=== PATIENT | female | born 1960 | race Hispanic/Latino ===

== ENCOUNTER 2017-08-26 10:45 | Outpatient (CLI) | payer OTHER ==
--- NOTE | 2017-08-26 13:33 | Mammography Report ---
Bilateral mammogram: No previous studies available. C. M.D. study utilized. Findings: Predominance adipose tissue bilaterally. 2 mm focal circumscribed asymmetry noted at mid left breast a long line of nipple seen on CC view. Normal axilla. No microcalcification. Impression: Tiny focal asymmetry is noted left breast. Recommend spot mag and if necessary sonographic examination. BI-RADS CATEGORY: 0 = Needs additional imaging evaluation ACR BI-RADS MAMMOGRAPHIC CODES: 0 = Needs additional imaging evaluation; 1 = Negative; 2 = Benign; 3 = Probably benign; 4 = Suspicious; 5 = Malignant; 6 = Known biopsy-proven malignancy COMMENT: 1. Dense breast tissue, i.e., adenosis, fibrocystic changes, etc., may obscure an underlying neoplasm. 2. Approximately 10% of cancers are not detected with mammography. 3. A negative mammography report should not delay biopsy if a clinically suspicious mass is present. COMMENT: Patient follow-up letters are generated in [employer].
== END 2017-08-26 10:46 | disposition home or self-care (01) ==
LOC: SPVWC 10:45
PROVIDERS: ATTEND Advanced Practice Midwife
DX: Z12.31 Encounter for screening mammogram for malignant neoplasm of breast (principal)
CPT/HCPCS: 77067

== ENCOUNTER 2017-09-09 10:02 | Outpatient (CLI) | payer OTHER ==
--- NOTE | 2017-09-09 10:35 | Mammography Report ---
left DIGITAL DIAGNOSTIC MAMMOGRAM : 09/09/17 10:02:00 CLINICAL: Recalled for asymmetry. COMPARISON:08/26/17 screening FINDINGS: A spot magnification CC view was performed and is negative. IMPRESSION: Negative Mammogram. BI-RADS CATEGORY: 1 -- Negative RECOMMENDATION: Routine mammographic screening in one year. ACR BI-RADS MAMMOGRAPHIC CODES: 0 = Needs additional imaging evaluation; 1 = Negative; 2 = Benign; 3 = Probably benign; 4 = Suspicious; 5 = Malignant; 6 = Known biopsy-proven malignancy COMMENT: 1. Dense breast tissue, i.e., adenosis, fibrocystic changes, etc., may obscure an underlying neoplasm. 2. Approximately 10% of cancers are not detected with mammography. 3. A negative mammography report should not delay biopsy if a clinically suspicious mass is present. COMMENT: Patient follow-up letters are generated via our [employer] application.
== END 2017-09-09 10:03 | disposition home or self-care (01) ==
LOC: SPVWC 10:02
PROVIDERS: ATTEND Advanced Practice Midwife
DX: N64.59 Other signs and symptoms in breast (principal)

== ENCOUNTER 2017-11-11 09:35 | Day surgery (SDC) | payer OTHER ==
[2017-11-11] MEDS ORDERED: NACL 0.9% 1000 ML 1,000 ML ONE (10:06)
[2017-11-11] MEDS ORDERED: WATER FOR IRRIG STERILE ONE (10:18)
[2017-11-11] MEDS ORDERED: WATER FOR IRRIG STERILE IR ONE (10:18)
--- NOTE | 2017-11-11 10:35 | Anesthesia Consultation ---
Anesthesia Consult and Med Hx Date of service: 11/11/17 - Airway Anesthetic Teeth Evaluation: Good ROM Head & Neck: Adequate Mental/Hyoid Distance: Adequate Mallampati Class: Class II Intubation Access Assessment: Probably Good - Pre-Operative Health Status ASA Pre-Surgery Classification: ASA1 Proposed Anesthetic Plan: MAC - Central Nervous System Hx Back Pain: Yes Hx Psychiatric Problems: Yes - Hematic Hx Anemia: Yes - Other Systems Hx Alcohol Use: No Hx Substance Use: No
--- NOTE | 2017-11-11 10:35 | Anesthesia Day of Surgery ---
Anesthesia Day of Surgery - Day of Surgery Patient Examined: Yes Patient H&P Reviewed: Yes Patient is NPO: Yes
[2017-11-11] MEDS ORDERED: XYLOCAINE MPF 2% ONE (11:00)
[2017-11-11] MEDS ORDERED: NACL 0.9% 1000 ML 1,000 ML IV SCH (11:00)
[2017-11-11] MEDS ORDERED: DIPRIVAN 10 MG/ML IV ONE ×3 (11:04→11:37)
--- NOTE | 2017-11-11 12:09 | Operative Report ---
Operative Report Operative Report: Date of procedure: 11/11/2017 Procedure: Colonoscopy with Snare polypectomy, Hot Biopsy Polypectomy, Polyp ablation, Hemoclip application, Submucosal injection. Attending physician: Roberto Vazquez MD Mechanical Engineering Specialist: Roberto Vazquez MD Indication: Patient is a 57-year-old female who presents for screening colonoscopy. This colonoscopy serves to evaluate patient so that treatment may be directed based on the findings. Consent: Informed consent was obtained after advising the patient and family regarding nature of this procedure, its indications, potential benefits as well as possible complications including but not limited to bleeding perforation and adverse reaction to medication, infection as well as other cardiopulmonary complications. An informed written and verbal consent was then obtained after due opportunity was provided for questions and answers. Monitoring: Patient was monitored continuously with pulse oximetry and electrocardiographic recordings as well as blood pressure recordings. Vital signs remained stable throughout this procedure with no untoward events. Preoperative assessment: Patient was assessed immediately prior to this procedure for capacity to tolerate monitored anesthesia care and moderate sedation as well as general anesthesia. Patient's ASA classification is 2, Mallampati class is 2, Hyomental distance is 3. Instrument: [employer]n video colonoscope Medications: Propofol given intravenously in divided doses. For details please refer to anesthesia records. Description of procedure: Patient was placed in the left lateral decubitus position after achieving sedation, a digital rectal examination was performed following which the colonoscope was introduced into the anal verge and advanced to the cecum which was identified by the cecal valve, the appendiceal orifice, as well as by the cecal strap and direct transillumination. The colonoscope was subsequently withdrawn with careful inspection of all mucosal surfaces. Patient tolerated this procedure well and was subsequently taken to the recovery room. The following findings were noted. Findings: Patient had a pedunculated broad-based 1.5 cm sigmoid colon polyp. This was removed initially with a snare electrocautery. There was residual polyp at the polyp base, therefore submucosal injection of saline was then done. The residual polyp was then removed again with snare electrocautery. Subsequently, a Hemoclip was applied over the polypectomy defect. There was a 4 -5 mm sessile polyp which was removed by hot biopsy polypectomy. There was another flat diminutive polyp in the same region which was ablated. There were scattered diverticula in the sigmoid colon and descending colon. The rest of the colon to the cecum was normal. On the retroflex view at the anal verge, patient had internal hemorrhoids. Impression: Sigmoid colon polyp status post submucosal injection with snare polypectomy and Hemoclip medication. Sigmoid colon polyp status post hot biopsy polypectomy. Sigmoid colon polyp status post ablation Diverticula disease of the colon. Internal hemorrhoids. Plan: Follow pathology report. High-fiber diet. Repeat colonoscopy in 1 year to evaluate the polypectomy site in the sigmoid colon.
--- NOTE | 2017-11-11 12:10 | Discharge Summary ---
Short Stay Discharge Plan Activity: advance as tolerated Weight Bearing Status: Weight Bear as Tolerated Diet: regular Additional Instructions: Post Sedation D/C Instructions When you return home you may resume your regular diet unless otherwise directed. -Go directly home from the hospital and rest quietly. You may resume normal activities tomorrow. -Do NOT drive, return to work, operate any machinery or make any important personal or business decisions today. -Do NOT drink any alcohol or take nerve or sleeping drugs. They add to the effects of the medicine still present in your body. CALL FOR F/U APPT. Follow up with: LISA NOYOLA MD [Primary Care Provider] - 7 Days
[2017-11-11 12:33] VITALS: BP 114/75
--- NOTE | 2017-11-11 13:18 | Post Anesthesia Evaluation ---
- Post Anesthesia Evaluation Patient Participated: Yes Airway Patent: Yes Stable Respiratory Function: Yes Nausea/Vomiting: No Temp > 96.8F: Yes Pain Manageable: Yes Adequeate Hydration: Yes Anesthesia Complications: No
== END 2017-11-11 12:35 | disposition home or self-care (01) ==
LOC: GIO 09:35
PROVIDERS: ATTEND Internal Medicine Gastroenterology
DX: Z12.11 Encounter for screening for malignant neoplasm of colon (principal); D12.5 Benign neoplasm of sigmoid colon; K63.5 Polyp of colon; K57.30 Diverticulosis of large intestine without perforation or abscess without bleeding; K64.8 Other hemorrhoids; F32.9 Major depressive disorder, single episode, unspecified
CPT/HCPCS: 45381; 45384; 45385; 45388; 88305; J2704; J7030

== ENCOUNTER 2018-12-29 09:15 | Outpatient (CLI) | payer OTHER ==
--- NOTE | 2018-12-29 09:47 | Mammography Report ---
BILATERAL MAMMOGRAM: FINDINGS: The breast tissue is heterogeneously dense, which could obscure detection of small masses (approximately 50%-75% glandular). No mass, distortion, suspicious calcification, or skin change is seen. No interval change when compared to prior examination in August 2017. CAD was utilized. IMPRESSION: Negative mammogram. There is no mammographic evidence of malignancy. RECOMMENDATION: Follow-up per ACS guidelines. BI-RADS CATEGORY: 1 = Negative ACR BI-RADS MAMMOGRAPHIC CODES: 0 = Needs additional imaging evaluation; 1 = Negative; 2 = Benign; 3 = Probably benign; 4 = Suspicious; 5 = Malignant; 6 = Known biopsy-proven malignancy COMMENT: 1. Dense breast tissue, i.e., adenosis, fibrocystic changes, etc., may obscure an underlying neoplasm. 2. Approximately 10% of cancers are not detected with mammography. 3. A negative mammography report should not delay biopsy if a clinically suspicious mass is present. COMMENT: Patient follow-up letters are generated in [employer].
== END 2018-12-29 09:16 | disposition home or self-care (01) ==
LOC: SPVWC 09:15
PROVIDERS: ATTEND Advanced Practice Midwife
DX: Z12.31 Encounter for screening mammogram for malignant neoplasm of breast (principal)
CPT/HCPCS: 77067

== ENCOUNTER 2021-01-11 09:40 | Outpatient (CLI) | payer OTHER ==
--- NOTE | 2021-01-11 10:31 | Mammography Report ---
DIGITAL SCREENING MAMMOGRAM WITH CAD, 01/11/2021 CLINICAL INFORMATION / INDICATION: Routine screening mammography. SCREENING MAMMO Z12.31 TECHNIQUE: Digital bilateral 2D mammography was obtained in the craniocaudal and mediolateral obliqu e projections. This examination was interpreted with the benefit of Computer-Aided Detection analysis . COMPARISON: 08/26/17 through 12/31/19. FINDINGS: Breast Density: There are scattered areas of fibroglandular density. No dominant mass, suspicious calcifications, or architectural distortion in either breast. IMPRESSION: No mammographic evidence of malignancy. Follow up recommendation: Routine yearly BI-RADS Category 1: Negative. A "normal" or negative report should not discourage follow up or biopsy of a clinically significant f inding. A written summary of these findings will be mailed to the patient. The patient will be entered into a mammography reporting system which will generate a reminder letter for the patient's next appointmen t at the appropriate interval. The [employer] recommends yearly mammograms starting at age 40 and continuing as l travis as a woman is in good health. Breast MRI is recommended for women with an approximate 20-25% or greater lifetime risk of breast cancer, including women with a strong family history of breast or ova osman cancer or who have been treated for Hodgkin's disease. Signer Name: Carlos Go MD Signed: 01/11/2021 10:26 AM Workstation Name: [email or web address]
== END 2021-01-11 09:41 | disposition home or self-care (01) ==
LOC: SPVWC 09:40
PROVIDERS: ATTEND Advanced Practice Midwife
DX: Z12.31 Encounter for screening mammogram for malignant neoplasm of breast (principal); N64.89 Other specified disorders of breast
CPT/HCPCS: 77067